=== PATIENT | male | born 1955 | race Two or more races ===

== ENCOUNTER 2020-08-15 20:51 | Day surgery (SDC) | payer OTHER ==
[~2020-08-15] VITALS: Ht 177.8 cm; Wt 90.7 kg
[2020-08-15] MEDS ORDERED: ZOCOR20 MG (20:59)
[2020-08-15] MEDS ORDERED: HUMALOG100 UNIT/2 (20:59)
[2020-08-15] MEDS ORDERED: TRICOR48 MG (20:59)
[2020-08-15] MEDS ORDERED: COZAAR25 MG (20:59)
[2020-08-15] MEDS ORDERED: JANUMET 50-1,01 EACH (20:59)
[2020-08-15] MEDS ORDERED: SYNTHROID50 MCG (20:59)
[2020-08-15] MEDS ORDERED: PLAVIX75 MG (20:59)
[2020-08-15] MEDS ORDERED: LANTUS SOL100 UNIT/1 (21:00)
[2020-08-16] MEDS ORDERED: TAMS0.4C PO (13:31)
[2020-08-16] MEDS ORDERED: PERCOCET 5-3251 EACH PO (13:32)
== END 2020-08-16 19:30 | disposition home or self-care (01) ==
LOC: ER 20:51 → CIR.AMB 08-16 11:01
PROVIDERS: ATTEND Surgery
DX: N13.2 Hydronephrosis with renal and ureteral calculous obstruction (principal); Z20.822 Contact with and (suspected) exposure to COVID-19

== ENCOUNTER 2020-09-20 05:21 | Day surgery (SDC) | payer OTHER ==
[~2020-09-20 05:21] MED LIST: COZAAR25 MG; CRESTOR20 MG PO; FOLIC PO; HUMALOG100 UNIT/2; JANUMET 50-1,01 EACH; LANTUS SOL100 UNIT/1; PERCOCET 5-3251 EACH PO; PLAVIX75 MG; RELAF PO; SYNTHROID50 MCG; TAMS0.4C PO; TRICOR48 MG; ZOCOR20 MG
[2020-09-20] MEDS ORDERED: PERCOCET 5-3251 EACH PO (10:19)
[2020-09-20] MEDS ORDERED: TAMS0.4C PO (10:20)
[2020-09-20] MEDS ORDERED: CEPHALEXIN500 MG PO (10:20)
== END 2020-09-20 16:25 | disposition home or self-care (01) ==
LOC: CIR.AMB 05:21
PROVIDERS: ATTEND Surgery
DX: N20.1 Calculus of ureter (principal); N20.0 Calculus of kidney; Z20.822 Contact with and (suspected) exposure to COVID-19